=== PATIENT | male | born 1980 | race Caucasian/White ===

== ENCOUNTER 2017-10-24 10:16 | Outpatient (CLI) | payer OTHER ==
[2013-02-15 07:52] VITALS: BP 180/110
--- NOTE | 2017-10-24 18:58 | Diagnostic Imaging Report ---
SHARI GARNETT [facility] [id number] [facility], [facility] [address] [address] Report Submission Date: Oct 24, 2017 11:07:51 AM CDT Patient Study Name: MANE TORRES Date: Oct 24, 2017 10:22:45 AM CDT Modality Type: DX Gender: M Description: LOWER EXTREMITY : 80 Institution: [facility] Physician: SHARI GARNETT Left foot 3 views History: Pain after injury 2 days ago Findings: The left foot is swollen without fracture, dislocation, arthropathy, or focal bone lesion. A small heel spur is present. Impression: Foot swelling without fracture. Electronically signed on Oct 24, 2017 11:07:51 AM CDT by: Hugh MCFADDEN
== END 2017-10-24 10:18 ==
LOC: RAD 10:16
PROVIDERS: ATTEND Physician Assistant
DX: M79.672 Pain in left foot (principal)
CPT/HCPCS: 73630

== ENCOUNTER 2018-03-20 15:58 | Emergency (ER) | payer OTHER ==
--- NOTE | 2018-03-20 16:11 | ED Physician Documentation ---
General Adult - HISTORIAN Historian: patient - HPI Stated Complaint: left thumb pain and swelling Chief Complaint: Hand Injury Onset: days ago (2) Timing: still present Severity: mild Further Comments: yes (swelling and pain after cutting turkey and cutting thumb. He has pain and swelling. Not UTD on tetanus) - ROS CONST: no problems MS/SKIN/LYMPH: rash - PAST HX Past History: none Other History: diabetes Type 2 Immunizations: tetanus Allergies/Adverse Reactions: Allergies Allergy/AdvReac Type Severity Reaction Status Date / Time No Known Drug Allergies Allergy Verified 03/20/18 16:17 Home Medications: Ambulatory Orders Medication Instructions Recorded Amlodipine Besylate 1 tab PO DAILY 30 Days #30 10/24/17 Canagliflozin [Invokana] 1 tab PO DAILY 90 Days #90 10/24/17 Lipase/Protease/Amylase [Creon Dr 1 each PO DAILY 10/24/17 12,000 Units Capsule] Losartan Potassium 1 tab PO DAILY 30 Days #30 10/24/17 Metformin HCl [Fortamet] 1 tab PO BID 90 Days #180 10/24/17 [place]-3 Fatty Acids [Fish Oil] 500 mg PO DAILY av 10/24/17 Rosuvastatin Calcium 1 tab PO DAILY 30 Days #30 10/24/17 - SOCIAL HX Smoking History: non-smoker Alcohol Use: none Drug Use: none - FAMILY HX Family History: Yes - VITAL SIGNS Vital Signs: Vital Signs Temp Pulse Resp BP Pulse Ox 180/110 02/15/13 07:50 - REVIEWED ASSESSMENTS Nursing Assessment Reviewed: Yes Vitals Reviewed: Yes ED Results Lab/Radiology - Radiology Radiology Impressions: Left hand three views History: Thumb laceration Findings: Old ulnar sided wrist ossicles are present. There is no evidence of acute fracture, dislocation, arthropathy, focal bone lesion, or radiopaque foreign body. Electronically signed on Mar 20, 2018 4:36:13 PM THERMOMETER MAKER by: Hugh De León General Adult Physical Exam - PHYSICAL EXAM GENERAL APPEARANCE: no distress NECK: normal inspection RESPIRATORY: no resp distress, chest non-tender, breath sounds normal CVS: reg rate & rhythm, heart sounds normal ABDOMEN: soft BACK: normal inspection SKIN: warm/dry, other (mild swelling in left thumb. pain with touch. decreased rom pulse +) EXTREMITIES: non-tender NEURO: oriented X3 Discharge Clincal Impression: Cut of finger Referrals: Primary Doctor,No [Primary Care Provider] - 2 Days Comments: 1. Bactrim DS take 1 by mouth twice daily x 10 days 2. Keep area clean and dry 3. See PCP In 2-4 days 4. Return to ER for any concerns Condition: Stable Disposition: 01 HOME, SELF-CARE Decision to Admit: NO Date of Decison to Admit: 03/20/18 Decision Time: 16:47
[2018-03-20 16:20] VITALS: BP 138/98
[2018-03-20] MEDS ORDERED: DIPH,PERTUSS(ACELL),TET VAC/PF 0.5 ML DISP.SYRIN IM ONE (16:20)
[2018-03-20] MEDS ORDERED: SULFAMETHOXAZOLE/TRIMETHOPRIM 800/160MG TAB PO ONE (16:48)
--- NOTE | 2018-03-20 17:00 | Diagnostic Imaging Report ---
WILL OSBORN [facility] [address] [facility] [address] [address] Report Submission Date: Mar 20, 2018 4:36:13 PM DIRECTOR BUILDING Patient Study Name: MANE TORRES Date: Mar 20, 2018 4:18:55 PM DIRECTOR BUILDING Modality Type: DX Gender: M Description: UPPER EXTREMITY : 80 Institution: [facility] Physician: WILL OSBORN Left hand three views History: Thumb laceration Findings: Old ulnar sided wrist ossicles are present. There is no evidence of acute fracture, dislocation, arthropathy, focal bone lesion, or radiopaque foreign body. Electronically signed on Mar 20, 2018 4:36:13 PM DIRECTOR BUILDING by: Hugh MCFADDEN
== END 2018-03-20 16:54 | disposition home or self-care (01) ==
LOC: ED 15:58
DX: S61.012A Laceration without foreign body of left thumb without damage to nail, initial encounter (principal); W26.8XXA Contact with other sharp object(s), not elsewhere classified, initial encounter; Y93.G1 Activity, food preparation and clean up; Y92.9 Unspecified place or not applicable
CPT/HCPCS: 73130; 90471; 90715; 99282; 99283